=== PATIENT | male | born 1965 ===

== ENCOUNTER 2017-03-25 18:48 | Emergency (ER) | payer OTHER ==
[2017-03-25] MEDS ORDERED: EFFEXOR (20:25)
[2017-03-25] MEDS ORDERED: BP MED (20:25)
[2017-03-25] MEDS ORDERED: STATIN (20:26)
[2017-03-25] MEDS ORDERED: ANTIINFLAMMATORY MED (20:27)
[2017-03-25] MEDS ORDERED: NAPROSYN500 M1 PO (20:39)
[2017-03-25] MEDS ORDERED: EFFEXOR XR37.5 M1 PO (20:40)
[2017-03-25] MEDS ORDERED: LIPITOR40 M1 PO (20:40)
[2017-03-25] MEDS ORDERED: PRINIVIL10 M1 PO (20:40)
== END 2017-03-25 22:00 ==
LOC: EDMED 18:48
DX: S06.0X0A Concussion without loss of consciousness, initial encounter (principal); G58.9 Mononeuropathy, unspecified; I10 Essential (primary) hypertension; Z79.899 Other long term (current) drug therapy; V49.40XA Driver injured in collision with unspecified motor vehicles in traffic accident, initial encounter; Y92.410 Unspecified street and highway as the place of occurrence of the external cause